=== PATIENT | female | born 2000 | race African-American/Black ===

== ENCOUNTER 2021-12-01 18:21 | Emergency (ER) | payer OTHER ==
[2021-12-01 20:40] LABS: BASOPHILS % (AUTO) 0.6 %; EOSINOPHILS # (AUTO) 0.1 10^3/uL (0.0-0.7); EOSINOPHILS % (AUTO) 1.9 %; HCT - HEMATOCRIT 32.6 % (37.0-47.0); HGB - HEMOGLOBIN 10.7 g/dL (12.0-16.0); LYMPHOCYTES # (AUTO) 2.3 10^3/uL (1.5-3.5); MEAN CORPUSCULAR HEMOGLOBIN 23.3 pg (27.0-31.0); MEAN CORPUSCULAR HGB CONC 32.8 g/dL (32.0-36.0); MONOCYTES # (AUTO) 0.6 10^3/uL (0.0-1.0); MONOCYTES % (AUTO) 7.9 %; NEUTROPHILS % (AUTO) 56.3 %; PLT - PLATELET COUNT 346 10^3/uL (130-450); RED BLOOD COUNT 4.59 10^6/uL (4.20-5.40); RED CELL DISTRIBUTION WIDTH 18.4 % (12.0-15.0)
[2021-12-01 20:59] LABS: ACETAMINOPHEN 14 ug/mL (10-30); ALBUMIN 4.5 g/dL (3.2-5.5); ALBUMIN/GLOBULIN RATIO 1.4 (1.0-2.2); ALKALINE PHOSPHATASE 36 IU/L (42-121); ALT ALANINE AMINOTRANSFERASE 16 IU/L (10-60); AST ASPARTATE AMINOTRANSFERASE 22 IU/L (10-42); BILIRUBIN,TOTAL 0.7 mg/dL (0.2-1.0); BUN - BLOOD UREA NITROGEN 8 mg/dL (6-20); CALCIUM 9.2 mg/dL (8.5-10.3); CARBON DIOXIDE - CO2 23 mmol/L (21-32); CHLORIDE 102 mmol/L (101-111); CREATININE 0.6 mg/dL (0.4-1.0); ETOH - ETHANOL < 5.0 mg/dL; GFR - MDRD 153 (>89); GLUCOSE 98 mg/dL (70-100); LIPASE 40 U/L (22-51); POTASSIUM 3.8 mmol/L (3.5-5.0); SALICYLATE < 6.0 mg/dL; SODIUM 135 mmol/L (135-145); TOTAL PROTEIN 7.7 g/dL (6.7-8.2)
[2021-12-01 20:59] LABS: MUDS CUTOFF CONCENTRATIONS CUTOFF CONC BELOW:
[2021-12-01 21:12] LABS: BILIRUBIN,URINE NEGATIVE (NEGATIVE); GLUCOSE, URINE (UA) NEGATIVE (NEGATIVE); KETONES,URINE (UA) NEGATIVE (NEGATIVE); LEUKOCYTE ESTERASE, URINE NEGATIVE (NEGATIVE); NITRITE,URINE POSITIVE (NEGATIVE); OCCULT BLOOD,URINE MODERATE (NEGATIVE); PH,URINE 7.5 PH (5.0-7.5); PROTEIN,URINE NEGATIVE (NEGATIVE); UROBILINOGEN,URINE 0.2 (NORMAL) E.U./dL (NORMAL)
[2021-12-01 21:18] LABS: CLARITY,URINE SL. CLOUDY (CLEAR); HCG UR QUAL NEGATIVE
[2021-12-01 21:24] LABS: AMPHETAMINE SCREEN,URINE NEGATIVE (NEGATIVE); BACTERIA,URINE Many /HPF (None Seen); BARBITURATE SCREEN,UR NEGATIVE (NEGATIVE); BENZODIAZEPINES SCREEN, URINE NEGATIVE (NEGATIVE); COCAINE SCREEN URINE NEGATIVE (NEGATIVE); METHADONE SCREEN, URINE NEGATIVE (NEGATIVE); METHAMPHETAMINES SCREEN, URINE NEGATIVE (NEGATIVE); OPIATE SCREEN, URINE NEGATIVE (NEGATIVE); OXYCODONE SCREEN, URINE NEGATIVE (NEGATIVE); PROPOXYPHENE SCREEN, URINE NEGATIVE (NEGATIVE); RBC,URINE 0-5 /HPF (0-5); SQUAMOUS EPITHELIAL CELL,UR RARE Squamous (<= Few); THC CANNABINOID SCREEN, URINE NEGATIVE (NEGATIVE); TRICYCLIC ANTIDEPRESSANT,URINE NEGATIVE (NEGATIVE); WBC,URINE 0-3 /HPF (0-5)
--- NOTE | 2021-12-01 21:41 | ED Physician Documentation ---
History of Present Illness - Stated complaint Stated Complaint: MHE - Chief complaint Chief Complaint: MHE - History obtained from History obtained from: Patient - Additonal information Additional information: 21yF with pmh iron deficiency anemia p/w depressed symptoms over the past several months, worsening this month. endorses home stressors (mother and brother with mental health issues, drug use in parents, arguments between parents) as well as stress within her life. feels safe in her living situation. no prior history of mental health diagnoses, but she states she has had depressive symptoms since teenage years. denies any medications. patient has tried to follow up with her LPO, chief, behavioral health services, fleet and family services, and 1 source and has been told that she can't get an appointment. This has been ongoing several months. denies SI/HI/ AVH. does have passive thoughts of hopelessness and suicide without an active plan. Review of Systems Ten Systems: 10 systems reviewed and negative Constitutional: denies: Fever, Chills Cardiac: denies: Chest pain / pressure Respiratory: denies: Dyspnea GI: denies: Nausea PD PAST MEDICAL HISTORY - Allergies Allergies/Adverse Reactions: Allergies Allergy/AdvReac Type Severity Reaction Status Date / Time No Known Drug Allergies Allergy Verified 12/01/21 20:27 PD ED PE NORMAL - Vitals Vital signs reviewed: Yes - General General: Alert and oriented X 3, No acute distress, Well developed/nourished - HEENT HEENT: Atraumatic, PERRL, EOMI - Neck Neck: Supple, no meningeal sign - Cardiac Cardiac: RRR - Respiratory Respiratory: No respiratory distress, Clear bilaterally - Abdomen Abdomen: Non tender, Non distended - Back Back: No CVA TTP - Derm Derm: Normal color, Warm and dry - Extremities Extremities: No deformity - Neuro Neuro: Alert and oriented X 3 - Psych Psych: Normal mood, Normal affect Results - Vitals Vitals: Vital Signs - 24 hr 12/01/21 20:23 Temperature 36.4 C L Heart Rate 73 Respiratory 14 Rate Blood Pressure 140/93 H O2 Saturation 100 Oxygen O2 Source Room air - Labs Labs: Laboratory Tests 12/01/21 12/01/21 12/01/21 20:32 20:32 20:32 WBC 7.0 RBC 4.59 Hgb 10.7 L Hct 32.6 L MCV 71.0 L MCH 23.3 L MCHC 32.8 RDW 18.4 H Plt Count 346 MPV 10.0 Neut # (Auto) 4.0 Lymph # (Auto) 2.3 [place] # (Auto) 0.6 Eos # (Auto) 0.1 Baso # (Auto) 0.0 Absolute Nucleated RBC 0.00 Nucleated RBC % 0.0 Sodium 135 Potassium 3.8 Chloride 102 Carbon Dioxide 23 Anion Gap 10.0 BUN 8 Creatinine 0.6 Estimated GFR (MDRD) 153 Glucose 98 Calcium 9.2 Total Bilirubin 0.7 AST 22 ALT 16 Alkaline Phosphatase 36 L Total Protein 7.7 Albumin 4.5 Globulin 3.2 Albumin/Globulin Ratio 1.4 Lipase 40 TSH 1.62 Urine Color Urine Clarity Urine pH Ur Specific [place] Urine Protein Urine Glucose (UA) Urine Ketones Urine Occult Blood Urine Nitrite Urine Bilirubin Urine Urobilinogen Ur Leukocyte Esterase Urine RBC Urine WBC Ur Squamous Epith Cells Urine Bacteria Ur Microscopic Review Urine Culture Comments Urine HCG, Qual Salicylates < 6.0 Urine Opiates Screen Ur Oxycodone Screen Urine Methadone Screen Ur Propoxyphene Screen Acetaminophen 14 Ur Barbiturates Screen Ur Tricyclics Screen Ur Phencyclidine Scrn Ur Amphetamine Screen U Methamphetamines Scrn U Benzodiazepines Scrn Urine Cocaine Screen U Cannabinoids Screen Ethyl Alcohol < 5.0 12/01/21 20:45 WBC RBC Hgb Hct MCV MCH MCHC RDW Plt Count MPV Neut # (Auto) Lymph # (Auto) [place] # (Auto) Eos # (Auto) Baso # (Auto) Absolute Nucleated RBC Nucleated RBC % Sodium Potassium Chloride Carbon Dioxide Anion Gap BUN Creatinine Estimated GFR (MDRD) Glucose Calcium Total Bilirubin AST ALT Alkaline Phosphatase Total Protein Albumin Globulin Albumin/Globulin Ratio Lipase TSH Urine Color LT. YELLOW Urine Clarity SL. CLOUDY Urine pH 7.5 Ur Specific [place] 1.015 Urine Protein NEGATIVE Urine Glucose (UA) NEGATIVE Urine Ketones NEGATIVE Urine Occult Blood MODERATE H Urine Nitrite POSITIVE H Urine Bilirubin NEGATIVE Urine Urobilinogen 0.2 (NORMAL) Ur Leukocyte Esterase NEGATIVE Urine RBC 0-5 Urine WBC 0-3 Ur Squamous Epith Cells RARE Squamous Urine Bacteria Many H Ur Microscopic Review INDICATED Urine Culture Comments INDICATED Urine HCG, Qual NEGATIVE Salicylates Urine Opiates Screen NEGATIVE Ur Oxycodone Screen NEGATIVE Urine Methadone Screen NEGATIVE Ur Propoxyphene Screen NEGATIVE Acetaminophen Ur Barbiturates Screen NEGATIVE Ur Tricyclics Screen NEGATIVE Ur Phencyclidine Scrn NEGATIVE Ur Amphetamine Screen NEGATIVE U Methamphetamines Scrn NEGATIVE U Benzodiazepines Scrn NEGATIVE Urine Cocaine Screen NEGATIVE U Cannabinoids Screen NEGATIVE Ethyl Alcohol PD MEDICAL DECISION MAKING - ED course ED course: 21yF with pmh iron deficiency anemia p/w depressed symptoms over the past several months, worsening this month. patient has tried to follow up with her LPO, chief, behavioral health services, fleet and family services, and 1 source and has been told that she can't get an appointment. This has been ongoing several months. denies SI/HI/ AVH. does have passive thoughts of hopelessness but contracts for safety here in the ED and denies active SI. d/w patient's 2nd classman superior officer who brought her in, as well as with the patient. She will require psychiatry follow up tomorrow and coordination of mental health counseling. discussed patient's lab results with her. u/a shows asymptomatic bacteriuria. patient denies urinary sx, abd pain back pain or fever. [place] restart her iron pills. return precautions given. Departure - Departure Disposition: 01 Home, Self Care Clinical Impression: Anemia, Depression Condition: Stable Instructions: ED Depression Comments: Clover Malik was seen in the emergency department for mental health evaluation on 12/01/21. It is my medical opinion that she is depressed and needs to see a psychiatrist with the [facility] tomorrow for initiation of a mental health plan. Please have her return to the ED between the hours of 9am and 5pm on week if the [facility] is unable to set her up with a mental health counselor and psychiatrist and we will coordinate with our social workers to have it done. Return to the ED at any time, day or night, for new or worsening symptoms or o ther concerns. Dr. Sara Corbett M.D. Emergency Medicine, [facility]
[2021-12-01 21:46] VITALS: BP 120/81
== END 2021-12-01 21:46 | disposition home or self-care (01) ==
LOC: ED 18:21
DX: F32.A Depression, unspecified (principal); D64.9 Anemia, unspecified
CPT/HCPCS: 36415; 80053; 80306; 80307; 80320; 80329; 81001; 81003; 81025; 83690; 84443; 85025; 87086; 99282; 99283

== ENCOUNTER 2021-12-18 14:44 | Outpatient (CLI) | payer OTHER | END 2021-12-18 14:45 | disposition critical access hospital (66) | LOC: EMS 14:44 | DX: T39.312A Poisoning by propionic acid derivatives, intentional self-harm, initial encounter (principal); T45.0X2A Poisoning by antiallergic and antiemetic drugs, intentional self-harm, initial encounter; R56.9 Unspecified convulsions | CPT/HCPCS: A0425; A0427 ==

== ENCOUNTER 2021-12-18 14:57 | Inpatient (IN) | payer OTHER ==
[2021-12-18] MEDS ORDERED: SODIUM CHLORIDE 0.9% 1,000 ML IV STA ×2 (15:04)
--- NOTE | 2021-12-18 15:08 | ED Physician Documentation ---
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 Apparently took about 20 to 30 tablets of each. 200 mg ibuprofen, 25 mg diphenhydramine. She reportedly had an episode of SVT with EMS. She is currently in sinus tachycardia. She had a seizure about 3 minutes prior to arrival. Was given 5 mg of Versed IV. EMS states that they do not know the circumstances surrounding the overdose. She did state that she was trying to harm herself. They do not have any further history on this patient. Review of Systems Unable to obtain: [facility] PD PAST MEDICAL HISTORY - Past Medical History Past Medical History: Yes Psych: Depression Other Past Medical History: anemia - Allergies Allergies/Adverse Reactions: Allergies Allergy/AdvReac Type Severity Reaction Status Date / Time No Known Drug Allergies Allergy Verified 12/18/21 15:44 - Living Situation Living Arrangement: reports: At home - Social History Does the pt have substance abuse?: No - Family History Family history: reports: Non contributory PD ED PE NORMAL - Vitals Vital signs reviewed: Yes - General General: Other (drowsy, not conversant) - HEENT HEENT: PERRL, Moist mucous membranes - Neck Neck: Supple, no meningeal sign - Cardiac Cardiac: Other (tachycardic) - Respiratory Respiratory: No respiratory distress, Clear bilaterally - Abdomen Abdomen: Soft, Non tender, Non distended - Derm Derm: Warm and dry - Extremities Extremities: No edema - Neuro Eye Opening: To Voice Motor: Withdraws to Pain Verbal: Inappropriate GCS Score: 10 Results - Vitals Vitals: Vital Signs - 24 hr 12/18/21 12/18/21 15:44 16:13 Temperature 37 C 36.9 C Heart Rate 155 H 156 H Respiratory 25 H 28 H Rate Blood Pressure 133/66 H 132/66 H O2 Saturation 100 100 Oxygen O2 Source Nasal cannula - EKG (time done) 1506 Rate: Rate (enter#) (154) Rhythm: Sinus tachycardia [place]: Normal Intervals: Normal [place] QRS: Normal Ischemia: Non specific changes - Labs Labs: Laboratory Tests 12/18/21 12/18/21 12/18/21 15:12 15:12 15:12 WBC RBC Hgb Hct MCV MCH MCHC RDW Plt Count MPV Neut # (Auto) Lymph # (Auto) [place] # (Auto) Eos # (Auto) Baso # (Auto) Absolute Nucleated RBC Nucleated RBC % VBG pH VBG pCO2 VBG pO2 VBG HCO3 VBG Total CO2 VBG O2 Saturation VBG Base Excess Sodium Potassium Chloride Carbon Dioxide Anion Gap BUN Creatinine Estimated GFR (MDRD) Glucose Calcium Total Bilirubin AST Alkaline Phosphatase Total Protein Albumin Globulin Albumin/Globulin Ratio Lipase TSH Urine Color YELLOW Urine Clarity HAZY Urine pH 6.5 Ur Specific [place] 1.020 Urine Protein NEGATIVE Urine Glucose (UA) NEGATIVE Urine Ketones NEGATIVE Urine Occult Blood NEGATIVE Urine Nitrite POSITIVE H Urine Bilirubin NEGATIVE Urine Urobilinogen 0.2 (NORMAL) Ur Leukocyte Esterase NEGATIVE Urine RBC 0-5 Urine WBC 6-10 H Ur Squamous Epith Cells NONE SEEN Urine Bacteria Many H Ur Microscopic Review INDICATED Urine Culture Comments INDICATED Urine HCG, Qual NEGATIVE Nasal Adenovirus (PCR) NOT DETECTED Nasal B. parapertussis DNA (PCR) NOT DETECTED Nasal Coronavir 229E PCR NOT DETECTED Nasal Coronavir HKU1 PCR NOT DETECTED Nasal Coronavir NL63 PCR NOT DETECTED Nasal Coronavir OC43 PCR NOT DETECTED Nasal Enterovir/Rhinovir PCR NOT DETECTED Nasal Influenza B PCR NOT DETECTED Nasal Influenza A PCR NOT DETECTED Nasal Parainfluen 1 PCR NOT DETECTED Nasal Parainfluen 2 PCR NOT DETECTED Nasal Parainfluen 3 PCR NOT DETECTED Nasal Parainfluen 4 PCR NOT DETECTED Nasal RSV (PCR) NOT DETECTED Nasal B.pertussis DNA PCR NOT DETECTED Nasal C.pneumoniae (PCR) NOT DETECTED Willem Human Metapneumo PCR NOT DETECTED Nasal M.pneumoniae (PCR) NOT DETECTED Nasal SARS-CoV-2 (PCR) NOT DETECTED Salicylates Urine Opiates Screen NEGATIVE Ur Oxycodone Screen NEGATIVE Urine Methadone Screen NEGATIVE Ur Propoxyphene Screen NEGATIVE Acetaminophen Ur Barbiturates Screen NEGATIVE Ur Tricyclics Screen NEGATIVE Ur Phencyclidine Scrn NEGATIVE Ur Amphetamine Screen NEGATIVE U Methamphetamines Scrn NEGATIVE U Benzodiazepines Scrn NEGATIVE Urine Cocaine Screen NEGATIVE U Cannabinoids Screen NEGATIVE Ethyl Alcohol 12/18/21 12/18/21 12/18/21 15:14 15:14 15:14 WBC 11.5 H RBC 4.56 Hgb 10.7 L Hct 34.2 L MCV 75.0 L MCH 23.5 L MCHC 31.3 L RDW 17.5 H Plt Count 304 MPV 10.3 Neut # (Auto) 6.9 H Lymph # (Auto) 3.6 H [place] # (Auto) 0.8 Eos # (Auto) 0.1 Baso # (Auto) 0.1 Absolute Nucleated RBC 0.00 Nucleated RBC % 0.0 VBG pH VBG pCO2 VBG pO2 VBG HCO3 VBG Total CO2 VBG O2 Saturation VBG Base Excess Sodium 134 L Potassium 3.4 L Chloride 103 Carbon Dioxide 12 L* Anion Gap 19.0 H BUN 12 Creatinine 1.0 Estimated GFR (MDRD) 85 L Glucose 92 Calcium 8.6 Total Bilirubin 1.1 H AST 35 Alkaline Phosphatase 37 L Total Protein 7.5 Albumin 4.5 Globulin 3.0 Albumin/Globulin Ratio 1.5 Lipase 29 TSH 1.06 Urine Color Urine Clarity Urine pH Ur Specific [place] Urine Protein Urine Glucose (UA) Urine Ketones Urine Occult Blood Urine Nitrite Urine Bilirubin Urine Urobilinogen Ur Leukocyte Esterase Urine RBC Urine WBC Ur Squamous Epith Cells Urine Bacteria Ur Microscopic Review Urine Culture Comments Urine HCG, Qual Nasal Adenovirus (PCR) Nasal B. parapertussis DNA (PCR) Nasal Coronavir 229E PCR Nasal Coronavir HKU1 PCR Nasal Coronavir NL63 PCR Nasal Coronavir OC43 PCR Nasal Enterovir/Rhinovir PCR Nasal Influenza B PCR Nasal Influenza A PCR Nasal Parainfluen 1 PCR Nasal Parainfluen 2 PCR Nasal Parainfluen 3 PCR Nasal Parainfluen 4 PCR Nasal RSV (PCR) Nasal B.pertussis DNA PCR Nasal C.pneumoniae (PCR) Willem Human Metapneumo PCR Nasal M.pneumoniae (PCR) Nasal SARS-CoV-2 (PCR) Salicylates < 6.0 Urine Opiates Screen Ur Oxycodone Screen Urine Methadone Screen Ur Propoxyphene Screen Acetaminophen < 10 L Ur Barbiturates Screen Ur Tricyclics Screen Ur Phencyclidine Scrn Ur Amphetamine Screen U Methamphetamines Scrn U Benzodiazepines Scrn Urine Cocaine Screen U Cannabinoids Screen Ethyl Alcohol < 5.0 12/18/21 15:14 WBC RBC Hgb Hct MCV MCH MCHC RDW Plt Count MPV Neut # (Auto) Lymph # (Auto) [place] # (Auto) Eos # (Auto) Baso # (Auto) Absolute Nucleated RBC Nucleated RBC % VBG pH 7.046 L VBG pCO2 38.2 L VBG pO2 111.2 H VBG HCO3 10.2 L VBG Total CO2 11.4 L VBG O2 Saturation 95.8 H VBG Base Excess -19.4 L Sodium Potassium Chloride Carbon Dioxide Anion Gap BUN Creatinine Estimated GFR (MDRD) Glucose Calcium Total Bilirubin AST Alkaline Phosphatase Total Protein Albumin Globulin Albumin/Globulin Ratio Lipase TSH Urine Color Urine Clarity Urine pH Ur Specific [place] Urine Protein Urine Glucose (UA) Urine Ketones Urine Occult Blood Urine Nitrite Urine Bilirubin Urine Urobilinogen Ur Leukocyte Esterase Urine RBC Urine WBC Ur Squamous Epith Cells Urine Bacteria Ur Microscopic Review Urine Culture Comments Urine HCG, Qual Nasal Adenovirus (PCR) Nasal B. parapertussis DNA (PCR) Nasal Coronavir 229E PCR Nasal Coronavir HKU1 PCR Nasal Coronavir NL63 PCR Nasal Coronavir OC43 PCR Nasal Enterovir/Rhinovir PCR Nasal Influenza B PCR Nasal Influenza A PCR Nasal Parainfluen 1 PCR Nasal Parainfluen 2 PCR Nasal Parainfluen 3 PCR Nasal Parainfluen 4 PCR Nasal RSV (PCR) Nasal B.pertussis DNA PCR Nasal C.pneumoniae (PCR) Willem Human Metapneumo PCR Nasal M.pneumoniae (PCR) Nasal SARS-CoV-2 (PCR) Salicylates Urine Opiates Screen Ur Oxycodone Screen Urine Methadone Screen Ur Propoxyphene Screen Acetaminophen Ur Barbiturates Screen Ur Tricyclics Screen Ur Phencyclidine Scrn Ur Amphetamine Screen U Methamphetamines Scrn U Benzodiazepines Scrn Urine Cocaine Screen U Cannabinoids Screen Ethyl Alcohol PD MEDICAL DECISION MAKING - ED course Complexity details: reviewed results, re-evaluated patient, considered differential, d/w patient ED course: Poison control was contacted. For the Motrin, they recommend observing for nausea vomiting, abdominal pain, acidosis and renal dysfunction. For the diphenhydramine, this can cause anticholinergic effects, widening of the QRS, arrhythmias, seizures and drowsiness. If the QRS widens above 110, recommend bicarb bolus 1 to 2 mcg/kg over 2-5 mins.Secondary toMay also cause agitation and hallucinations. Use benzodiazepines as needed. Will likely need at least 24 hours of observation to slowed gastric emptying and slow GI motility from the anticholinergic effect. 1630 - Patient is opening her eyes and talking, she does appear drowsy. Patient will be admitted to the ICU for further care. Discussed the case with Dr. Carroll, 1600, hospitalist who accepts. This document was made in part using voice recognition software. While efforts are made to proofread this document, sound alike and grammatical errors may occur. Departure - Departure Disposition: 66 [facility] DC/Xfer Clinical Impression: Suicide attempt, Metabolic acidosis Diphenhydramine overdose Qualifiers: Encounter type: initial encounter Injury intent: intentional self-harm Qualified Code(s): T45.0X2A - Poisoning by antiallergic and antiemetic drugs, intentional self-harm, initial encounter Ibuprofen overdose Qualifiers: Encounter type: sequela Injury intent: intentional self-harm Qualified Code(s): T39.312S - Poisoning by propionic acid derivatives, intentional self-harm, sequela Condition: Serious
[2021-12-18 15:24] LABS: BASOPHILS # (AUTO) 0.1 10^3/uL (0.0-0.1); BASOPHILS % (AUTO) 0.7 %; EOSINOPHILS # (AUTO) 0.1 10^3/uL (0.0-0.7); EOSINOPHILS % (AUTO) 0.7 %; HCT - HEMATOCRIT 34.2 % (37.0-47.0); HGB - HEMOGLOBIN 10.7 g/dL (12.0-16.0); LYMPHOCYTES # (AUTO) 3.6 10^3/uL (1.5-3.5); LYMPHOCYTES % (AUTO) 31.3 %; MEAN CORPUSCULAR HEMOGLOBIN 23.5 pg (27.0-31.0); MEAN CORPUSCULAR HGB CONC 31.3 g/dL (32.0-36.0); MEAN PLATELET VOLUME 10.3 fL (7.9-10.8); MONOCYTES # (AUTO) 0.8 10^3/uL (0.0-1.0); MONOCYTES % (AUTO) 7.1 %; NEUTROPHILS # (AUTO) 6.9 10^3/uL (1.5-6.6); NEUTROPHILS % (AUTO) 59.9 %; PLT - PLATELET COUNT 304 10^3/uL (130-450); RED BLOOD COUNT 4.56 10^6/uL (4.20-5.40); RED CELL DISTRIBUTION WIDTH 17.5 % (12.0-15.0); WHITE BLOOD COUNT 11.5 x10^3/uL (4.8-10.8)
[2021-12-18 15:25] LABS: MUDS CUTOFF CONCENTRATIONS CUTOFF CONC BELOW:
[2021-12-18 15:28] LABS: BILIRUBIN,URINE NEGATIVE (NEGATIVE); GLUCOSE, URINE (UA) NEGATIVE (NEGATIVE); KETONES,URINE (UA) NEGATIVE (NEGATIVE); LEUKOCYTE ESTERASE, URINE NEGATIVE (NEGATIVE); NITRITE,URINE POSITIVE (NEGATIVE); OCCULT BLOOD,URINE NEGATIVE (NEGATIVE); PH,URINE 6.5 PH (5.0-7.5); PROTEIN,URINE NEGATIVE (NEGATIVE); UROBILINOGEN,URINE 0.2 (NORMAL) E.U./dL (NORMAL)
[2021-12-18 15:30] LABS: CLARITY,URINE HAZY (CLEAR); HCG UR QUAL NEGATIVE
[2021-12-18] MEDS ORDERED: PANTOPRAZOLE 40 MG VIAL IVP STA (15:38)
[2021-12-18 15:39] LABS: BACTERIA,URINE Many /HPF (None Seen); RBC,URINE 0-5 /HPF (0-5); SQUAMOUS EPITHELIAL CELL,UR NONE SEEN (<= Few)
[2021-12-18 15:41] LABS: AMPHETAMINE SCREEN,URINE NEGATIVE (NEGATIVE); BARBITURATE SCREEN,UR NEGATIVE (NEGATIVE); BENZODIAZEPINES SCREEN, URINE NEGATIVE (NEGATIVE); COCAINE SCREEN URINE NEGATIVE (NEGATIVE); METHADONE SCREEN, URINE NEGATIVE (NEGATIVE); METHAMPHETAMINES SCREEN, URINE NEGATIVE (NEGATIVE); OPIATE SCREEN, URINE NEGATIVE (NEGATIVE); OXYCODONE SCREEN, URINE NEGATIVE (NEGATIVE); PROPOXYPHENE SCREEN, URINE NEGATIVE (NEGATIVE); THC CANNABINOID SCREEN, URINE NEGATIVE (NEGATIVE); TRICYCLIC ANTIDEPRESSANT,URINE NEGATIVE (NEGATIVE)
[2021-12-18 15:45] LABS: ACETAMINOPHEN < 10 ug/mL (10-30); ALBUMIN 4.5 g/dL (3.2-5.5); ALBUMIN/GLOBULIN RATIO 1.5 (1.0-2.2); ALKALINE PHOSPHATASE 37 IU/L (42-121); AST ASPARTATE AMINOTRANSFERASE 35 IU/L (10-42); BILIRUBIN,TOTAL 1.1 mg/dL (0.2-1.0); BUN - BLOOD UREA NITROGEN 12 mg/dL (6-20); CALCIUM 8.6 mg/dL (8.5-10.3); CHLORIDE 103 mmol/L (101-111); ETOH - ETHANOL < 5.0 mg/dL; GFR - MDRD 85 (>89); GLUCOSE 92 mg/dL (70-100); LIPASE 29 U/L (22-51); POTASSIUM 3.4 mmol/L (3.5-5.0); SALICYLATE < 6.0 mg/dL; SODIUM 134 mmol/L (135-145); TOTAL PROTEIN 7.5 g/dL (6.7-8.2)
[2021-12-18 15:46] LABS: CARBON DIOXIDE - CO2 12 mmol/L (21-32)
[2021-12-18] MEDS ORDERED: ONDANSETRON 4 MG/2 ML VIAL IVP PRN (16:06)
[2021-12-18] MEDS ORDERED: SODIUM CHLORIDE FLUSH 0.9% 10 ML SYRINGE IVP PRN (16:06)
--- NOTE | 2021-12-18 16:14 | HISTORY & PHYSICAL EXAMINATION ---
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 She apparently did start seeing a counselor, but that "did not help". Today EMS was called after she took an overdose of ibuprofen and diphenhydramine. She took approx. 20-30 tablets of 200 mg ibuprofen tabs and 25 mg diphenhydramine tabs. She reportedly had an episode of SVT with EMS and had a seizure about 3 minutes prior to arrival. EMS gave her 5 mg of Versed IV. EMS states that they do not know the circumstances surrounding the overdose, but she did state that she was trying to harm herself. She says that "a lot of little things" set her off to do this, she has never overdosed previously. She is being admitted to the ICU because of the seizure and acidosis. She appears very scared, her eyes are wide open, she is startled easily, her hands are tremulous. She does not answer any details about the ingestion. History - Past Medical History Cardiovascular: reports: None Respiratory: reports: None Neuro: reports: None Endocrine/Autoimmune: reports: None GI: reports: None [employer] HELPER: reports: None : reports: None HEENT: reports: None Psych: reports: Depression Musculoskeletal: reports: None Derm: reports: None Other Past Medical History: anemia - Family & Social History Living arrangement: At home Living Situation: Alone Social History Notes: FH is unknown, patient is poor historian, her answers are vague. She does not smoke cigarettes and would not answer regarding how much alcohol she drinks or about drug use. Meds/Allgy - Allergies Allergies/Adverse Reactions: Allergies Allergy/AdvReac Type Severity Reaction Status Date / Time No Known Drug Allergies Allergy Verified 12/18/21 15:44 Review of Systems - All Other Systems All Other Systems: reports: Other (Cannot perform ROS as she is poor historian due to vague answers.) Exam - Vital Signs Reviewed Vital Signs: Yes Vital Signs: Vital Signs x48h Temp Pulse Resp BP Pulse Ox 01/30/22 15:44 37 C 155 H 25 H 133/66 H 100 - Physical Exam General Appearance: positive: Other (Appears scared, eyes are wide open, she is staring straight ahead.) Eyes Bilateral: positive: Normal inspection, EOMI ENT: positive: Dry mucous membranes Neck: positive: Nml inspection, No JVD Respiratory: positive: No respiratory distress, Breath sounds nml Cardiovascular: positive: Regular rate & rhythm, No murmur, Tachycardia Abdomen: positive: Non-tender, No distention Skin: positive: Warm, Dry Extremities: positive: Non-tender, No pedal edema Neurologic/Psychiatric: positive: Other (Alert and hypersensative to stimuli, arms and hands are tremulous, she is staring straight ahead (?hallucinating), and her answers are slow and brief and vague.) Conclusion/Plan - Problem List (1) Suicide attempt Conclusion/Plan: She will be admitted to manage the medical complications of Benadryl OD and NSAID OD. 1:1 monitoring and suicide precautions. Mental Health eval planned when she is medically cleared. Her commanding officer Jordan Huang was contacted ([phone] ) and updates were given to him, after the pt allowed us to talk to him. (2) Ibuprofen overdose Conclusion/Plan: Poison control was contacted by ED staff and NSAID overdose may cause acidosis, bleeding, and they recommend observing for nausea vomiting, abdominal pain, acidosis and renal dysfunction. Her serum electrolytes already show a low bicarb of 12, therefore we will obtain a serum pH by VBG and start bicarbonate drip if needed. Follow her electrolytes closely. Give prophylactic IV Protonix to potentially prevent GI bleeding. Watch for ANDRAE from NSAIDs. Follow BUN/creat daily Qualifiers: Encounter type: sequela Injury intent: intentional self-harm Qualified Code(s): T39.312S - Poisoning by propionic acid derivatives, intentional self- harm, sequela (3) Diphenhydramine overdose Conclusion/Plan: Poison control was called and a Benadryl over dose can cause potential QRS prolongation, anticholinergic effects, arrhythmias, seizures and drowsiness. If the QRS widens above 110, recommended bicarb bolus 1 to 2 mcg/kg over 2-5 mins. She may also get agitation and hallucinations. Would use benzodiazepines as needed, as per Poison control. She already has tachycardia and elevated temperature, which are consistent with anticholinergic toxicity. She already has altered mental status and needs monitoring for respiratory depression, will be admitted to the ICU, for seizure precautions and in case she needs intubation. Telemetry to monitor QRS duration. Continuous pulse oximetry to monitor for desturations and resp depression for intubation. Qualifiers: Encounter type: initial encounter Injury intent: intentional self-harm Qualified Code(s): T45.0X2A - Poisoning by antiallergic and antiemetic drugs, intentional self-harm, initial encounter (4) Metabolic acidosis Conclusion/Plan: Will start iv bicarb drip. Follow VBG q4 hr (5) Tachycardia Conclusion/Plan: She is very tachycardic at rest with a heart rate of 160. It is sinus tachycardia. This is likely due to anticholinergic toxicity (from the Benadryl overdose). We will give a saline bolus, in case part of this is due to volume depletion. We will continue with telemetry monitoring. (6) UTI (urinary tract infection) Conclusion/Plan: The patient has a fever of 38 degrees C. Her white blood count is elevated at 11.5. She is unreliable to describe if she has dysuria but possibly her mental status alteration is partly from an infection, therefore she will be started on empiric IV antibiotics using Ceftriaxone. Urine culture has been sent from her UA. We will order blood cultures, given the fever. (7) Hypokalemia Conclusion/Plan: Despite being acidotic, she does not have hyperkalemia. This suggests very low serum potassium stores. We will replace with K riders. Follow electrolytes closely. (8) Depression Conclusion/Plan: The details of how she was managed as an outpatient are unknown. Social Work consult will be requested for help with learning the circumstances of the overdose, and for a mental health eval. when she is medically stabilized. (9) Microcytic anemia Conclusion/Plan: She carries a history of iron deficiency anemia, but not sickle cell disease, although this should be considered given she is [place]. Will resume her iron replacement or any other meds when they are reconciled by pharmacy. We will follow her CBC daily, and transfuse if hemoglobin goes under 7 - Lab Results Fish Bones: 12/19/21 04:55 12/19/21 04:55
[2021-12-18 16:18] LABS: B. PARAPERTUSSIS- RESP PCR PAN NOT DETECTED; B. PERTUSSIS- RESP PCR PANEL NOT DETECTED; C. PNEUMONIAE- RESP PCR PANEL NOT DETECTED; CORONAVIRUS 229E-RESP PCR NOT DETECTED; CORONAVIRUS HKU1-RESP PCR NOT DETECTED; CORONAVIRUS NL63-RESP PCR NOT DETECTED; CORONAVIRUS OC43-RESP PCR NOT DETECTED; HUMAN METAPNEUMOVIRUS NOT DETECTED; INFLUENZA A- RESP PCR PANEL NOT DETECTED; INFLUENZA B - RESP PCR PANEL NOT DETECTED; M. PNEUMONIAE- RESP PCR PANEL NOT DETECTED; PARAINFLUENZA VIRUS 1 NOT DETECTED; PARAINFLUENZA VIRUS 2 NOT DETECTED; PARAINFLUENZA VIRUS 3 NOT DETECTED; PARAINFLUENZA VIRUS 4 NOT DETECTED; RHINOVIRUS/ENTEROVIRUS NOT DETECTED; RSV- RESP PCR PANEL NOT DETECTED; SARS-CoV-2 -RESP PCR PANEL NOT DETECTED
[2021-12-18 16:20] LABS: VBG PCO2 38.2 mmHg (41-51); VBG PH 7.046 (7.31-7.41)
[2021-12-18 16:21] LABS: VBG BASE EXCESS -19.4 mmol/L (-2 - +2); VBG HCO3 10.2 mmol/L (23-28); VBG OXYGEN SATURATION 95.8 % (60-80); VBG PO2 111.2 mmHg (25-47); VBG TOTAL CO2 11.4 mmol/L (24-29)
[2021-12-18 16:41] LABS: ALT ALANINE AMINOTRANSFERASE 18 IU/L (10-60)
[2021-12-18] MEDS ORDERED: SODIUM CHLORIDE 0.9% 1,000 ML IV ONE (19:06)
[2021-12-18] MEDS ORDERED: DEXTROSE 5% 2,000 ML IV ONE (19:30)
[2021-12-18] MEDS ORDERED: SODIUM BICARBONATE 8.4% 50 MEQ/50 ML VIAL ONE (19:33)
[2021-12-18] MEDS ORDERED: SODIUM BICARBONATE 150 MEQ in DEXTROSE 5% 1,000 ML IV SCH (20:00)
[2021-12-18] MEDS: DEXTROSE 5%-0.9% NACL 1,000 ML IV SCH (20:27)
[2021-12-18] MEDS: SODIUM CHLORIDE FLUSH 0.9% 10 ML SYRINGE IVP SCH (20:28)
[2021-12-18] MEDS: POTASSIUM CHLOR 10 MEQ/100 ML 10 MEQ/100 ML BAG IV SCH ×4 (20:32→23:38)
[2021-12-18] MEDS: cefTRIAXone 1 GM in SODIUM CHLORIDE 0.9% MINIBAG 100 ML IV SCH (20:34)
[2021-12-19] MEDS: SODIUM CHLORIDE FLUSH 0.9% 10 ML SYRINGE IVP SCH ×3 (00:45→18:26)
[2021-12-19] MEDS ORDERED: LORazepam 1 MG TABLET PO PRN (02:05)
[2021-12-19] MEDS ORDERED: [UNRECOGNIZED DRUG - OTHER] IVP ONE (02:05)
--- NOTE | 2021-12-19 02:35 | PROVIDER PROGRESS NOTE ---
Assessment/Plan - Problem List (1) Diphenhydramine overdose Qualifiers: Encounter type: initial encounter Injury intent: intentional self-harm Qualified Code(s): T45.0X2A - Poisoning by antiallergic and antiemetic drugs, intentional self-harm, initial encounter Assessment/Plan: Interval history: Patient overnight remained tachycardic with increasing heart rate up to the 140s, she was restless, tremulous was noted with dilated pupils and obvious signs of severe anticholinergic toxicity Active issues/diagnoses: Intentional overdose on Benadryl/severe anticholinergic toxicity with tachycard ia, seizure, encephalopathy/altered mental status, severe AGAP metabolic acidosis Plan: Treat with physostigmine Ativan as needed Continue bicarb drip Check creatinine kinase Aspiration precautions/seizure precaution Continue one-to-one sitter, mental health evaluation Self harm/Depression/acute UTI could possibly affect patient's mentation and poor decision-making MHE Would benefit from start of antidepressant when stable Appeared malnourished/will need inker machine support/evaluation Urinary tract infection/continue ceftriaxone, pending urine culture Hypokalemia/electrolyte abnormality/ replace as needed Microcytic anemia without clinical history or sign of bleeding Might have nutritional deficiencies will need anemia work-up Likely has iron deficiency/young menstruating female - Current Meds Current Meds: Current Medications Generic Name Dose Route Start Last Admin Trade Name Freq PRN Reason Stop Dose Admin Dextrose/Sodium Chloride 1,000 mls @ 83.33 mls/hr 12/18/21 17:00 12/18/21 20:27 D5ns IV 83.33 mls/hr .Q12H1M ED Administration Sodium Bicarbonate 150 meq/ 1,150 mls @ 100 mls/hr 12/18/21 20:00 12/18/21 20:05 Dextrose IV 100 mls/hr .[id number] ED Administration Ceftriaxone Sodium 1 gm/ 100 mls @ 200 mls/hr 12/18/21 20:00 12/18/21 21:35 Sodium Chloride IV Infused Q24H ED Infusion Lorazepam 1 mg 12/19/21 02:05 12/19/21 02:16 Lorazepam 1 Mg Tablet PO 1 mg Q6H PRN Administration Anxiety Sodium Chloride 10 ml 12/18/21 17:00 12/19/21 00:45 Sodium Chloride Flush 0.9% 10 Ml Syringe IVP Not Given 0100,0900,1700 ED - Lab Result Fish Bone Diagrams: 12/18/21 15:14 12/19/21 02:15 - EKG Results EKG Comparison: Unchanged from prior EKG - Additional Planning Condition/Complexity: Critical My Orders: My Active Orders 12/19/21 02:05 LORazepam [Ativan] 1 mg PO Q6H PRN 12/19/21 02:15 CK- CREATINE KINASE [CHEM] Routine 12/19/21 Breakfast Regular Diet [DIET] Time Spent: 31-60 minutes Subjective - Subjective Patient Reports: Other (Appears restless and reacting to outside stimuli however denies all complaints, fidgeting and notably restless and uncomfortable) Nursing Reports: Other (Reviewed) Objective Vital Signs: Vital Signs - 24 hr 12/18/21 12/18/21 12/18/21 15:44 16:13 16:49 Temperature 37 C 36.9 C 36.9 C Heart Rate 155 H 156 H 163 H Heart Rate [ Monitoring electrodes] Respiratory 25 H 28 H 24 Rate Blood Pressure 133/66 H 132/66 H 140/68 H Blood Pressure [Right Brachial artery] O2 Saturation 100 100 100 12/18/21 12/18/21 12/18/21 17:13 18:00 19:00 Temperature 36.9 C 38 C H Heart Rate 157 H Heart Rate [ 158 H 147 H Monitoring electrodes] Respiratory 16 24 27 H Rate Blood Pressure 140/74 H Blood Pressure 140/75 H 139/85 H [Right Brachial artery] O2 Saturation 100 100 100 12/18/21 12/18/21 12/18/21 20:00 20:43 22:00 Temperature 37.1 C Heart Rate Heart Rate [ 149 H 134 H 136 H Monitoring electrodes] Respiratory 17 18 21 Rate Blood Pressure Blood Pressure 138/75 H 138/77 H 138/88 H [Right Brachial artery] O2 Saturation 100 100 100 12/18/21 12/19/21 12/19/21 23:00 00:00 01:00 Temperature Heart Rate Heart Rate [ 135 H 135 H 136 H Monitoring electrodes] Respiratory 19 21 20 Rate Blood Pressure Blood Pressure 139/85 H 135/80 H 147/76 H [Right Brachial artery] O2 Saturation 100 100 99 12/19/21 02:00 Temperature 37.4 C Heart Rate Heart Rate [ 140 H Monitoring electrodes] Respiratory 22 Rate Blood Pressure Blood Pressure 131/77 H [Right Brachial artery] O2 Saturation 99 Oxygen O2 Source Room air I&O (Last 24 Hrs): Intake and Output Totals x24h 12/17/21 12/18/21 12/19/21 23:59 23:59 23:59 Intake Total 3400 100 Output Total 1700 1575 Balance 1700 -1475 General: Alert, Other (Fidgety, appears reacting to outside impulses however denies hallucination) HEENT: Atraumatic Neck: Supple Lymphatic: no adenopathy Neuro: Alert, Disoriented, Other (Dilated pupils, fine tremors, nystagmus) Cardiovascular: Normal S1, Normal S2, Other (Regular tachycardia, hyperdynamic circulation heart rate around 140) Respiratory: No respiratory distress, Other (Increased work of breathing, respiratory rate in the high 20s) Abdomen: Soft, No tenderness - Results Results: Laboratory Results WBC 11.5 x10^3/uL (4.8-10.8) H 12/18/21 15:14 RBC 4.56 10^6/uL (4.20-5.40) 12/18/21 15:14 Hgb 10.7 g/dL (12.0-16.0) L 12/18/21 15:14 Hct 34.2 % (37.0-47.0) L 12/18/21 15:14 MCV 75.0 fL (81.0-99.0) L 12/18/21 15:14 MCH 23.5 pg (27.0-31.0) L 12/18/21 15:14 MCHC 31.3 g/dL (32.0-36.0) L 12/18/21 15:14 RDW 17.5 % (12.0-15.0) H 12/18/21 15:14 Plt Count 304 10^3/uL (130-450) 12/18/21 15:14 MPV 10.3 fL (7.9-10.8) 12/18/21 15:14 Neut # (Auto) 6.9 10^3/uL (1.5-6.6) H 12/18/21 15:14 Lymph # (Auto) 3.6 10^3/uL (1.5-3.5) H 12/18/21 15:14 [place] # (Auto) 0.8 10^3/uL (0.0-1.0) 12/18/21 15:14 Eos # (Auto) 0.1 10^3/uL (0.0-0.7) 12/18/21 15:14 Baso # (Auto) 0.1 10^3/uL (0.0-0.1) 12/18/21 15:14 Absolute Nucleated RBC 0.00 x10^3/uL 12/18/21 15:14 Nucleated RBC % 0.0 /100WBC 12/18/21 15:14 VBG pH 7.046 (7.31-7.41) L 12/18/21 15:14 VBG pCO2 38.2 mmHg (41-51) L 12/18/21 15:14 VBG pO2 111.2 mmHg (25-47) H 12/18/21 15:14 VBG HCO3 10.2 mmol/L (23-28) L 12/18/21 15:14 VBG Total CO2 11.4 mmol/L (24-29) L 12/18/21 15:14 VBG O2 Saturation 95.8 % (60-80) H 12/18/21 15:14 VBG Base Excess -19.4 mmol/L (-2 - +2) L 12/18/21 15:14 Sodium 134 mmol/L (135-145) L 12/18/21 15:14 Potassium 3.4 mmol/L (3.5-5.0) L 12/18/21 15:14 Chloride 103 mmol/L (101-111) 12/18/21 15:14 Carbon Dioxide 12 mmol/L (21-32) L* 12/18/21 15:14 Anion Gap 19.0 (6-13) H 12/18/21 15:14 BUN 12 mg/dL (6-20) 12/18/21 15:14 Creatinine 1.0 mg/dL (0.4-1.0) 12/18/21 15:14 Estimated GFR (MDRD) 85 (>89) L 12/18/21 15:14 Glucose 92 mg/dL (70-100) 12/18/21 15:14 Lactic Acid 1.8 mmol/L (0.5-2.2) 12/18/21 20:05 Calcium 8.6 mg/dL (8.5-10.3) 12/18/21 15:14 Phosphorus 4.2 mg/dL (2.5-4.6) 12/18/21 15:14 Magnesium 2.2 mg/dL (1.7-2.8) 12/18/21 15:14 Total Bilirubin 1.1 mg/dL (0.2-1.0) H 12/18/21 15:14 AST 35 IU/L (10-42) 12/18/21 15:14 ALT 18 IU/L (10-60) 12/18/21 15:14 Alkaline Phosphatase 37 IU/L (42-121) L 12/18/21 15:14 Total Protein 7.5 g/dL (6.7-8.2) 12/18/21 15:14 Albumin 4.5 g/dL (3.2-5.5) 12/18/21 15:14 Globulin 3.0 g/dL (2.1-4.2) 12/18/21 15:14 Albumin/Globulin Ratio 1.5 (1.0-2.2) 12/18/21 15:14 Lipase 29 U/L (22-51) 12/18/21 15:14 TSH 1.06 uIU/mL (0.34-5.60) 12/18/21 15:14 Urine Color YELLOW 12/18/21 15:12 Urine Clarity HAZY (CLEAR) 12/18/21 15:12 Urine pH 6.5 PH (5.0-7.5) 12/18/21 15:12 Ur Specific [place] 1.020 (1.002-1.030) 12/18/21 15:12 Urine Protein NEGATIVE mg/dL (NEGATIVE) 12/18/21 15:12 Urine Glucose (UA) NEGATIVE mg/dL (NEGATIVE) 12/18/21 15:12 Urine Ketones NEGATIVE mg/dL (NEGATIVE) 12/18/21 15:12 Urine Occult Blood NEGATIVE (NEGATIVE) 12/18/21 15:12 Urine Nitrite POSITIVE (NEGATIVE) H 12/18/21 15:12 Urine Bilirubin NEGATIVE (NEGATIVE) 12/18/21 15:12 Urine Urobilinogen 0.2 (NORMAL) E.U./dL (NORMAL) 12/18/21 15:12 Ur Leukocyte Esterase NEGATIVE (NEGATIVE) 12/18/21 15:12 Urine RBC 0-5 /HPF (0-5) 12/18/21 15:12 Urine WBC 6-10 /HPF (0-5) H 12/18/21 15:12 Ur Squamous Epith Cells NONE SEEN (<= Few) 12/18/21 15:12 Urine Bacteria Many /HPF (None Seen) H 12/18/21 15:12 Ur Microscopic Review INDICATED 12/18/21 15:12 Urine Culture Comments INDICATED 12/18/21 15:12 Urine HCG, Qual NEGATIVE 12/18/21 15:12 Nasal Adenovirus (PCR) NOT DETECTED 12/18/21 15:12 Nasal B. parapertussis DNA (PCR) NOT DETECTED 12/18/21 15:12 Nasal Coronavir 229E PCR NOT DETECTED 12/18/21 15:12 Nasal Coronavir HKU1 PCR NOT DETECTED 12/18/21 15:12 Nasal Coronavir NL63 PCR NOT DETECTED 12/18/21 15:12 Nasal Coronavir OC43 PCR NOT DETECTED 12/18/21 15:12 Nasal Enterovir/Rhinovir PCR NOT DETECTED 12/18/21 15:12 Nasal Influenza B PCR NOT DETECTED 12/18/21 15:12 Nasal Influenza A PCR NOT DETECTED 12/18/21 15:12 Nasal Parainfluen 1 PCR NOT DETECTED 12/18/21 15:12 Nasal Parainfluen 2 PCR NOT DETECTED 12/18/21 15:12 Nasal Parainfluen 3 PCR NOT DETECTED 12/18/21 15:12 Nasal Parainfluen 4 PCR NOT DETECTED 12/18/21 15:12 Nasal RSV (PCR) NOT DETECTED 12/18/21 15:12 Nasal Screen MRSA (PCR) NEGATIVE (NEGATIVE) 12/18/21 18:00 Nasal B.pertussis DNA PCR NOT DETECTED 12/18/21 15:12 Nasal C.pneumoniae (PCR) NOT DETECTED 12/18/21 15:12 Willem Human Metapneumo PCR NOT DETECTED 12/18/21 15:12 Nasal M.pneumoniae (PCR) NOT DETECTED 12/18/21 15:12 Nasal SARS-CoV-2 (PCR) NOT DETECTED 12/18/21 15:12 Salicylates < 6.0 mg/dL 12/18/21 15:14 Urine Opiates Screen NEGATIVE (NEGATIVE) 12/18/21 15:12 Ur Oxycodone Screen NEGATIVE (NEGATIVE) 12/18/21 15:12 Urine Methadone Screen NEGATIVE (NEGATIVE) 12/18/21 15:12 Ur Propoxyphene Screen NEGATIVE (NEGATIVE) 12/18/21 15:12 Acetaminophen < 10 ug/mL (10-30) L 12/18/21 15:14 Ur Barbiturates Screen NEGATIVE (NEGATIVE) 12/18/21 15:12 Ur Tricyclics Screen NEGATIVE (NEGATIVE) 12/18/21 15:12 Ur Phencyclidine Scrn NEGATIVE (NEGATIVE) 12/18/21 15:12 Ur Amphetamine Screen NEGATIVE (NEGATIVE) 12/18/21 15:12 U Methamphetamines Scrn NEGATIVE (NEGATIVE) 12/18/21 15:12 U Benzodiazepines Scrn NEGATIVE (NEGATIVE) 12/18/21 15:12 Urine Cocaine Screen NEGATIVE (NEGATIVE) 12/18/21 15:12 U Cannabinoids Screen NEGATIVE (NEGATIVE) 12/18/21 15:12 Ethyl Alcohol < 5.0 mg/dL 12/18/21 15:14
[2021-12-19] MEDS ORDERED: POTASSIUM CHLORIDE 20 MEQ TABLET PO ONE ×3 (04:26→12:48)
[2021-12-19 05:23] LABS: BASOPHILS # (AUTO) 0.1 10^3/uL (0.0-0.1); BASOPHILS % (AUTO) 0.4 %; HCT - HEMATOCRIT 31.2 % (37.0-47.0); HGB - HEMOGLOBIN 10.4 g/dL (12.0-16.0); LYMPHOCYTES # (AUTO) 1.8 10^3/uL (1.5-3.5); LYMPHOCYTES % (AUTO) 12.3 %; MEAN CORPUSCULAR HEMOGLOBIN 23.5 pg (27.0-31.0); MEAN CORPUSCULAR HGB CONC 33.3 g/dL (32.0-36.0); MEAN CORPUSCULAR VOLUME 70.6 fL (81.0-99.0); MEAN PLATELET VOLUME 10.8 fL (7.9-10.8); NEUTROPHILS # (AUTO) 11.4 10^3/uL (1.5-6.6); NEUTROPHILS % (AUTO) 79.9 %; PLT - PLATELET COUNT 325 10^3/uL (130-450); RED BLOOD COUNT 4.42 10^6/uL (4.20-5.40); RED CELL DISTRIBUTION WIDTH 16.7 % (12.0-15.0); WHITE BLOOD COUNT 14.2 x10^3/uL (4.8-10.8)
[2021-12-19 05:33] LABS: ALBUMIN 4.5 g/dL (3.2-5.5); ALBUMIN/GLOBULIN RATIO 1.5 (1.0-2.2); BILIRUBIN,TOTAL 1.2 mg/dL (0.2-1.0); CALCIUM 8.8 mg/dL (8.5-10.3); CREATININE 0.8 mg/dL (0.4-1.0); PHOSPHORUS 2.7 mg/dL (2.5-4.6); POTASSIUM 3.6 mmol/L (3.5-5.0); TOTAL PROTEIN 7.6 g/dL (6.7-8.2)
[2021-12-19] MEDS: DEXTROSE 5%-0.9% NACL 1,000 ML IV SCH ×2 (06:44→07:08)
[2021-12-19 13:59] LABS: % IRON SATURATION 5 % (20-50); IRON 18 ug/dL (28-170); TOTAL IRON BINDING CAPACITY 378 ug/dL (250-450); TRANSFERRIN 270 mg/dL (192-382)
--- NOTE | 2021-12-19 16:35 | XRAY Report ---
PROCEDURE: Pelvis 1 View INDICATIONS: Eval for retained tampon TECHNIQUE: 1 view of the pelvis acquired. COMPARISON: None. FINDINGS: Bones: No acute fractures or dislocations. No suspicious bony lesions. Soft tissues: An intrauterine device is seen projecting over the pelvis. No obvious radiolucent tamp on is seen projecting over the lower pelvis, although evaluation is limited by multiple air-filled lo ops of small and large bowel within the pelvis. Visualized bowel gas pattern is normal. No suspiciou s soft tissue calcifications. IMPRESSION: Intrauterine device is seen projecting over the right pelvis. No definite radiolucent ta mpon is seen, although evaluation is suboptimal due to multiple air-filled loops of small and large b owel within the pelvis. Reviewed by: Josh Viera MD on 12/19/2021 4:34 PM PST Approved by: Josh Viera MD on 12/19/2021 4:34 PM PST Station ID: [id number]
--- NOTE | 2021-12-19 17:00 | PROVIDER PROGRESS NOTE ---
Assessment/Plan - Problem List (1) Suicide attempt Assessment/Plan: She was admitted to manage the medical complications of Benadryl OD and NSAID OD. She can be transferred out of ICU to [facility] this afternoon. Continue 1:1 monitoring and suicide precautions. Mental Health eval planned when she is medically cleared. Thus a.m. she could not remember what she did. Her commanding officer Jordan Huang was contacted again today, he came in person (and yesterday at [phone] ) and updates were given to him, after the pt allowed us to talk to him. Also updates given to [employer], Dr Terrazas by phone ([phone]) She will likely be medically cleared for transfer to [facility] tomorrow. (2) Ibuprofen overdose Conclusion/Plan: Poison control was contacted by ED staff and NSAID overdose may cause acidosis, bleeding, and they recommend observing for nausea vomiting, abdominal pain, acidosis and renal dysfunction. Her serum electrolytes already showed a low bicarb of 12, therefore was on a bicarbonate drip overnight. Will stop iv bicarb drip today. Follow her electrolytes daily We started prophylactic IV Protonix to potentially prevent NSAID-caused GI bleeding. Watch for ANDRAE from NSAIDs. Follow BUN/creat daily Qualifiers: Encounter type: sequela Injury intent: intentional self-harm Qualified Code(s): T39.312S - Poisoning by propionic acid derivatives, intentional self- harm, sequela (3) Diphenhydramine overdose Conclusion/Plan: Poison control was called and a Benadryl overdose can cause potential QRS prolongation, anticholinergic effects, arrhythmias, seizures and drowsiness. If the QRS widens above 110, recommended bicarb bolus 1 to 2 mcg/kg over 2-5 mins. She may also get agitation and hallucinations. Would use benzodiazepines as needed, as per Poison control. She was already tachycardic and elevated temperature at admission, which are consistent with anticholinergic toxicity. She already had altered mental status and needed monitoring for respiratory depression, was admitted to the ICU, for seizure precautions and in case she needs intubation. [place] Control called us and requested EKG repeat, to monitor QRS duration. QRS has not become prolonged and no arrhythmias on telemetry. Continuous pulse oximetry was started to monitor for desturations and resp depression for intubation. Will cancel this. Qualifiers: Encounter type: initial encounter Injury intent: intentional self-harm Qualified Code(s): T45.0X2A - Poisoning by antiallergic and antiemetic drugs, intentional self-harm, initial encounter (4) Tachycardia Conclusion/Plan: She was very tachycardic at rest with a heart rate of 160, likely due to anticholinergic toxicity (from the Benadryl overdose). She got a saline bolus and antibx were started for a poss UTI. She is still slightly tachycardic at 100-108 and we will continue with telemetry monitoring but move out of ICU. (5) UTI (urinary tract infection) Conclusion/Plan: The patient has a fever of 38 degrees C. Her white blood count was elevated at 11.5 and today increased to 14. She was unreliable to describe if she has dysuria, therefore she was started on empiric IV antibiotics using Ceftriaxone. Today she was concerned about a retained tampon. A KUB was done and showed no tampon. Urine culture has been sent from her UA and is growing GPC. Awaiting identification and sens. Blood culture results are still pending. (6) Depression Conclusion/Plan: The details of how she was managed as an outpatient are unknown. Social Work consult will be requested for help with learning the circumstances of the overdose, and for a mental health eval. when she is medically stabilized, probably tomorrow. The patient's commanding officer thinks she would be transferred to [facility] for further management. (7) Microcytic anemia Conclusion/Plan: She carries a history of iron deficiency anemia, but not sickle cell disease, although this should be considered given she is [place]. Will start iron replacement, given the low Iron panel results. She was apparently on no meds per reconciled list by pharmacy. We will follow her CBC daily, and transfuse if hemoglobin goes under 7 (8) Metabolic acidosis Conclusion/Plan: Resolved. Will stop iv bicarb drip. She can be transferred out of ICU. (9) Hypokalemia Conclusion/Plan: Resolved Despite being acidotic, she does not have hyperkalemia. This suggests very low serum potassium stores. We will replace with K riders. Follow electrolytes closely. - Current Meds Current Meds: Current Medications Generic Name Dose Route Start Last Admin Trade Name Freq PRN Reason Stop Dose Admin Ceftriaxone Sodium 1 gm/ 100 mls @ 200 mls/hr 12/18/21 20:00 12/18/21 21:35 Sodium Chloride IV Infused Q24H ED Infusion Lorazepam 1 mg 12/19/21 02:05 12/19/21 02:16 Lorazepam 1 Mg Tablet PO 1 mg Q6H PRN Administration Anxiety Sodium Chloride 10 ml 12/18/21 17:00 12/19/21 07:15 Sodium Chloride Flush 0.9% 10 Ml Syringe IVP 20 ml 0100,0900,1700 ED Administration - Lab Result Fish Bone Diagrams: 12/19/21 04:55 12/19/21 10:30 - EKG Results EKG Interpreted Independently: Yes EKG Comparison: Unchanged from prior EKG EKG Findings: Sinus tachy, rate 109, borderline prolonged QTc at 488 msec. Since EKG from 12/18/21, heart rate is slower, QTc is similar. - Additional Planning My Orders: My Active Orders 12/18/21 16:06 Activity Orders [RC] Q2HR Daily Weight [RC] 0600 IO [RC] Q1HR Initiate Bowel Care Protocol [RC] QSHIFT Initiate ICU Electrolyte Prot. [RC] .protocol Initiate Line Care Protocol [RC] .protocol Initiate Personal Care Protoco [RC] .protocol Vital Signs [RC] Q1HR Ondansetron Inj [Zofran Inj] 4 mg IVP Q6HR PRN Sodium Chloride Flush 0.9% [Normal Saline Flush 0.9%] 10 ml IVP PRN PRN Code Status [OTHERS] Routine Condition of Patient [OTHERS] Routine DVT Prophylaxis [OTHERS] Routine 12/18/21 16:08 Oxygen Therapy [RC] .PRN SCDs [RC] QSHIFT Telemetry- [RC] Q4HR 12/18/21 16:09 Initiate Line Care Protocol [RC] QSHIFT 12/18/21 16:32 Neuro Check [RC] Q2HR 12/18/21 17:00 Sodium Chloride Flush 0.9% [Normal Saline Flush 0.9%] 10 ml IVP 0100,0900,1700 12/18/21 20:00 cefTRIAXone [Rocephin] 1 gm Sodium Chloride 0.9% Minibag [Normal Saline 0.9% Minibag] 100 ml IV Q24H 12/18/21 20:05 CULTURE, BLOOD #1 [RM] Stat 12/18/21 20:55 CULTURE, BLOOD #2 [RM] Stat 12/19/21 Evaluate and Treat PT [PT] Routine 12/19/21 Dinner Vegetarian Diet [DIET] 12/19/21 16:58 Daley Discontinuation [RC] ONCE 12/20/21 05:00 IRON TIBC PANEL [CHEM] DAILYLAB Subjective - Subjective Patient Reports: Feeling Better, Other (She thinks she has a retained tampon inside her.) Nursing Reports: Other (No more tremor, or ataxic movements) Objective Vital Signs: Vital Signs - 24 hr 12/18/21 12/18/21 12/18/21 17:13 18:00 19:00 Temperature 36.9 C 38 C H Heart Rate 157 H Heart Rate [ 158 H 147 H Monitoring electrodes] Respiratory 16 24 27 H Rate Blood Pressure 140/74 H Blood Pressure 140/75 H 139/85 H [Right Brachial artery] O2 Saturation 100 100 100 12/18/21 12/18/21 12/18/21 20:00 20:43 22:00 Temperature 37.1 C Heart Rate Heart Rate [ 149 H 134 H 136 H Monitoring electrodes] Respiratory 17 18 21 Rate Blood Pressure Blood Pressure 138/75 H 138/77 H 138/88 H [Right Brachial artery] O2 Saturation 100 100 100 12/18/21 12/19/21 12/19/21 23:00 00:00 01:00 Temperature Heart Rate Heart Rate [ 135 H 135 H 136 H Monitoring electrodes] Respiratory 19 21 20 Rate Blood Pressure Blood Pressure 139/85 H 135/80 H 147/76 H [Right Brachial artery] O2 Saturation 100 100 99 12/19/21 12/19/21 12/19/21 02:00 03:00 04:00 Temperature 37.4 C Heart Rate Heart Rate [ 140 H 139 H 137 H Monitoring electrodes] Respiratory 22 21 23 Rate Blood Pressure Blood Pressure 131/77 H 136/87 H 132/82 H [Right Brachial artery] O2 Saturation 99 98 100 12/19/21 12/19/21 12/19/21 05:00 06:00 07:00 Temperature Heart Rate Heart Rate [ 144 H 122 H 133 H Monitoring electrodes] Respiratory 25 H 24 23 Rate Blood Pressure Blood Pressure 139/84 H 132/80 H 128/74 [Right Brachial artery] O2 Saturation 98 98 100 12/19/21 12/19/21 12/19/21 08:00 09:00 10:00 Temperature 36.9 C Heart Rate Heart Rate [ 103 H 112 H 112 H Monitoring electrodes] Respiratory 22 20 22 Rate Blood Pressure Blood Pressure 133/78 H 131/83 H 132/71 H [Right Brachial artery] O2 Saturation 99 98 97 12/19/21 12/19/21 12/19/21 11:00 12:00 13:00 Temperature 37.1 C Heart Rate Heart Rate [ 96 108 H 98 Monitoring electrodes] Respiratory 18 22 20 Rate Blood Pressure Blood Pressure 107/56 L 99/64 127/99 H [Right Brachial artery] O2 Saturation 96 95 96 12/19/21 12/19/21 12/19/21 14:00 15:00 16:00 Temperature 36.7 C Heart Rate Heart Rate [ 99 86 75 Monitoring electrodes] Respiratory 18 20 15 Rate Blood Pressure Blood Pressure 124/81 H 113/75 127/75 [Right Brachial artery] O2 Saturation 98 Oxygen O2 Source Room air I&O (Last 24 Hrs): Intake and Output Totals x24h 12/17/21 12/18/21 12/19/21 23:59 23:59 23:59 Intake Total 3400 1236.91 Output Total 1700 3865 Balance 1700 -2628.09 General: Alert, Oriented x3 (Still has poor eye contact) HEENT: Atraumatic, EOMI, Mucous membr. moist/pink Neck: Supple, No JVD Neuro: Alert, Non Focal Cardiovascular: Regular rate, No murmurs Respiratory: No respiratory distress, Breath sounds nml Abdomen: Normal bowel sounds, Soft Extremities: No edema, No tenderness/swelling - Results Results: Laboratory Results WBC 14.2 x10^3/uL (4.8-10.8) H 12/19/21 04:55 RBC 4.42 10^6/uL (4.20-5.40) 12/19/21 04:55 Hgb 10.4 g/dL (12.0-16.0) L 12/19/21 04:55 Hct 31.2 % (37.0-47.0) L 12/19/21 04:55 MCV 70.6 fL (81.0-99.0) L 12/19/21 04:55 MCH 23.5 pg (27.0-31.0) L 12/19/21 04:55 MCHC 33.3 g/dL (32.0-36.0) 12/19/21 04:55 RDW 16.7 % (12.0-15.0) H 12/19/21 04:55 Plt Count 325 10^3/uL (130-450) 12/19/21 04:55 MPV 10.8 fL (7.9-10.8) 12/19/21 04:55 Neut # (Auto) 11.4 10^3/uL (1.5-6.6) H 12/19/21 04:55 Lymph # (Auto) 1.8 10^3/uL (1.5-3.5) 12/19/21 04:55 [place] # (Auto) 1.0 10^3/uL (0.0-1.0) 12/19/21 04:55 Eos # (Auto) 0.0 10^3/uL (0.0-0.7) 12/19/21 04:55 Baso # (Auto) 0.1 10^3/uL (0.0-0.1) 12/19/21 04:55 Absolute Nucleated RBC 0.00 x10^3/uL 12/19/21 04:55 Nucleated RBC % 0.0 /100WBC 12/19/21 04:55 VBG pH 7.046 (7.31-7.41) L 12/18/21 15:14 VBG pCO2 38.2 mmHg (41-51) L 12/18/21 15:14 VBG pO2 111.2 mmHg (25-47) H 12/18/21 15:14 VBG HCO3 10.2 mmol/L (23-28) L 12/18/21 15:14 VBG Total CO2 11.4 mmol/L (24-29) L 12/18/21 15:14 VBG O2 Saturation 95.8 % (60-80) H 12/18/21 15:14 VBG Base Excess -19.4 mmol/L (-2 - +2) L 12/18/21 15:14 Sodium 136 mmol/L (135-145) 12/19/21 04:55 Potassium 3.8 mmol/L (3.5-5.0) 12/19/21 10:30 Chloride 104 mmol/L (101-111) 12/19/21 04:55 Carbon Dioxide 21 mmol/L (21-32) 12/19/21 04:55 Anion Gap 11.0 (6-13) 12/19/21 04:55 BUN 5 mg/dL (6-20) L 12/19/21 04:55 Creatinine 0.8 mg/dL (0.4-1.0) 12/19/21 04:55 Estimated GFR (MDRD) 110 (>89) 12/19/21 04:55 Glucose 107 mg/dL (70-100) H 12/19/21 04:55 Lactic Acid 1.8 mmol/L (0.5-2.2) 12/18/21 20:05 Calcium 8.8 mg/dL (8.5-10.3) 12/19/21 04:55 Phosphorus 2.7 mg/dL (2.5-4.6) 12/19/21 04:55 Magnesium 2.0 mg/dL (1.7-2.8) 12/19/21 04:55 Iron 18 ug/dL (28-170) L 12/19/21 05:10 TIBC 378 ug/dL (250-450) 12/19/21 05:10 % Saturation 5 % (20-50) L 12/19/21 05:10 Transferrin 270 mg/dL (192-382) 12/19/21 05:10 Ferritin 7.8 ng/mL (11.0-306.8) L 12/19/21 05:10 Total Bilirubin 1.2 mg/dL (0.2-1.0) H 12/19/21 04:55 AST 26 IU/L (10-42) 12/19/21 04:55 ALT 17 IU/L (10-60) 12/19/21 04:55 Alkaline Phosphatase 36 IU/L (42-121) L 12/19/21 04:55 Total Creatine Kinase 77 IU/L (22-269) 12/19/21 02:15 Total Protein 7.6 g/dL (6.7-8.2) 12/19/21 04:55 Albumin 4.5 g/dL (3.2-5.5) 12/19/21 04:55 Globulin 3.1 g/dL (2.1-4.2) 12/19/21 04:55 Albumin/Globulin Ratio 1.5 (1.0-2.2) 12/19/21 04:55 Lipase 29 U/L (22-51) 12/18/21 15:14 TSH 1.06 uIU/mL (0.34-5.60) 12/18/21 15:14 Urine Color YELLOW 12/18/21 15:12 Urine Clarity HAZY (CLEAR) 12/18/21 15:12 Urine pH 6.5 PH (5.0-7.5) 12/18/21 15:12 Ur Specific [place] 1.020 (1.002-1.030) 12/18/21 15:12 Urine Protein NEGATIVE mg/dL (NEGATIVE) 12/18/21 15:12 Urine Glucose (UA) NEGATIVE mg/dL (NEGATIVE) 12/18/21 15:12 Urine Ketones NEGATIVE mg/dL (NEGATIVE) 12/18/21 15:12 Urine Occult Blood NEGATIVE (NEGATIVE) 12/18/21 15:12 Urine Nitrite POSITIVE (NEGATIVE) H 12/18/21 15:12 Urine Bilirubin NEGATIVE (NEGATIVE) 12/18/21 15:12 Urine Urobilinogen 0.2 (NORMAL) E.U./dL (NORMAL) 12/18/21 15:12 Ur Leukocyte Esterase NEGATIVE (NEGATIVE) 12/18/21 15:12 Urine RBC 0-5 /HPF (0-5) 12/18/21 15:12 Urine WBC 6-10 /HPF (0-5) H 12/18/21 15:12 Ur Squamous Epith Cells NONE SEEN (<= Few) 12/18/21 15:12 Urine Bacteria Many /HPF (None Seen) H 12/18/21 15:12 Ur Microscopic Review INDICATED 12/18/21 15:12 Urine Culture Comments INDICATED 12/18/21 15:12 Urine HCG, Qual NEGATIVE 12/18/21 15:12 Nasal Adenovirus (PCR) NOT DETECTED 12/18/21 15:12 Nasal B. parapertussis DNA (PCR) NOT DETECTED 12/18/21 15:12 Nasal Coronavir 229E PCR NOT DETECTED 12/18/21 15:12 Nasal Coronavir HKU1 PCR NOT DETECTED 12/18/21 15:12 Nasal Coronavir NL63 PCR NOT DETECTED 12/18/21 15:12 Nasal Coronavir OC43 PCR NOT DETECTED 12/18/21 15:12 Nasal Enterovir/Rhinovir PCR NOT DETECTED 12/18/21 15:12 Nasal Influenza B PCR NOT DETECTED 12/18/21 15:12 Nasal Influenza A PCR NOT DETECTED 12/18/21 15:12 Nasal Parainfluen 1 PCR NOT DETECTED 12/18/21 15:12 Nasal Parainfluen 2 PCR NOT DETECTED 12/18/21 15:12 Nasal Parainfluen 3 PCR NOT DETECTED 12/18/21 15:12 Nasal Parainfluen 4 PCR NOT DETECTED 12/18/21 15:12 Nasal RSV (PCR) NOT DETECTED 12/18/21 15:12 Nasal Screen MRSA (PCR) NEGATIVE (NEGATIVE) 12/18/21 18:00 Nasal B.pertussis DNA PCR NOT DETECTED 12/18/21 15:12 Nasal C.pneumoniae (PCR) NOT DETECTED 12/18/21 15:12 Willem Human Metapneumo PCR NOT DETECTED 12/18/21 15:12 Nasal M.pneumoniae (PCR) NOT DETECTED 12/18/21 15:12 Nasal SARS-CoV-2 (PCR) NOT DETECTED 12/18/21 15:12 Salicylates < 6.0 mg/dL 12/18/21 15:14 Urine Opiates Screen NEGATIVE (NEGATIVE) 12/18/21 15:12 Ur Oxycodone Screen NEGATIVE (NEGATIVE) 12/18/21 15:12 Urine Methadone Screen NEGATIVE (NEGATIVE) 12/18/21 15:12 Ur Propoxyphene Screen NEGATIVE (NEGATIVE) 12/18/21 15:12 Acetaminophen < 10 ug/mL (10-30) L 12/18/21 15:14 Ur Barbiturates Screen NEGATIVE (NEGATIVE) 12/18/21 15:12 Ur Tricyclics Screen NEGATIVE (NEGATIVE) 12/18/21 15:12 Ur Phencyclidine Scrn NEGATIVE (NEGATIVE) 12/18/21 15:12 Ur Amphetamine Screen NEGATIVE (NEGATIVE) 12/18/21 15:12 U Methamphetamines Scrn NEGATIVE (NEGATIVE) 12/18/21 15:12 U Benzodiazepines Scrn NEGATIVE (NEGATIVE) 12/18/21 15:12 Urine Cocaine Screen NEGATIVE (NEGATIVE) 12/18/21 15:12 U Cannabinoids Screen NEGATIVE (NEGATIVE) 12/18/21 15:12 Ethyl Alcohol < 5.0 mg/dL 12/18/21 15:14
[2021-12-19] MEDS: FERROUS GLUCONATE 324 MG TABLET PO SCH (18:26)
[2021-12-19] MEDS: cefTRIAXone 1 GM in SODIUM CHLORIDE 0.9% MINIBAG 100 ML IV SCH (19:49)
[2021-12-20] MEDS: SODIUM CHLORIDE FLUSH 0.9% 10 ML SYRINGE IVP SCH ×3 (02:33→19:47)
[2021-12-20 05:41] LABS: % IRON SATURATION 4 % (20-50); IRON 13 ug/dL (28-170); TOTAL IRON BINDING CAPACITY 354 ug/dL (250-450); TRANSFERRIN 253 mg/dL (192-382)
[2021-12-20 08:22] LABS: BASOPHILS # (AUTO) 0.1 10^3/uL (0.0-0.1); BASOPHILS % (AUTO) 0.7 %; CREATININE 0.9 mg/dL (0.4-1.0); EOSINOPHILS # (AUTO) 0.2 10^3/uL (0.0-0.7); EOSINOPHILS % (AUTO) 3.2 %; HCT - HEMATOCRIT 34.6 % (37.0-47.0); HGB - HEMOGLOBIN 11.4 g/dL (12.0-16.0); LYMPHOCYTES # (AUTO) 2.1 10^3/uL (1.5-3.5); LYMPHOCYTES % (AUTO) 28.6 %; MEAN CORPUSCULAR HEMOGLOBIN 23.6 pg (27.0-31.0); MEAN CORPUSCULAR HGB CONC 32.9 g/dL (32.0-36.0); MEAN CORPUSCULAR VOLUME 71.6 fL (81.0-99.0); MEAN PLATELET VOLUME 11.9 fL (7.9-10.8); MONOCYTES # (AUTO) 0.6 10^3/uL (0.0-1.0); MONOCYTES % (AUTO) 7.6 %; NEUTROPHILS # (AUTO) 4.3 10^3/uL (1.5-6.6); NEUTROPHILS % (AUTO) 59.8 %; PLT - PLATELET COUNT 290 10^3/uL (130-450); POTASSIUM 3.8 mmol/L (3.5-5.0); RED BLOOD COUNT 4.83 10^6/uL (4.20-5.40); RED CELL DISTRIBUTION WIDTH 17.3 % (12.0-15.0); WHITE BLOOD COUNT 7.2 x10^3/uL (4.8-10.8)
[2021-12-20] MEDS ORDERED: levoFLOXacin 250 MG TABLET PO SCH (11:00)
[2021-12-20] MEDS: FERROUS GLUCONATE 324 MG TABLET PO SCH (13:12)
[2021-12-20 16:57] LABS: B. PARAPERTUSSIS- RESP PCR PAN NOT DETECTED; B. PERTUSSIS- RESP PCR PANEL NOT DETECTED; C. PNEUMONIAE- RESP PCR PANEL NOT DETECTED; CORONAVIRUS 229E-RESP PCR NOT DETECTED; CORONAVIRUS HKU1-RESP PCR NOT DETECTED; CORONAVIRUS NL63-RESP PCR NOT DETECTED; CORONAVIRUS OC43-RESP PCR NOT DETECTED; HUMAN METAPNEUMOVIRUS NOT DETECTED; INFLUENZA A- RESP PCR PANEL NOT DETECTED; INFLUENZA B - RESP PCR PANEL NOT DETECTED; M. PNEUMONIAE- RESP PCR PANEL NOT DETECTED; PARAINFLUENZA VIRUS 1 NOT DETECTED; PARAINFLUENZA VIRUS 2 NOT DETECTED; PARAINFLUENZA VIRUS 3 NOT DETECTED; PARAINFLUENZA VIRUS 4 NOT DETECTED; RHINOVIRUS/ENTEROVIRUS NOT DETECTED; RSV- RESP PCR PANEL NOT DETECTED; SARS-CoV-2 -RESP PCR PANEL NOT DETECTED
--- NOTE | 2021-12-20 17:35 | PROVIDER PROGRESS NOTE ---
Subjective - Prog Note Date Prog Note Date: 12/20/21 Prog Note Time: 17:33 - Subjective Subjective: She is medically stable. Patient is more alert. Tachycardia, pupillary dilation has resolved. She is taking p.o. We attempted to get her to [facility] again. [facility] does not have any beds. I have been in contact with her [place] MD, Dr. Rose at [phone]. She has a flat affect. Gets tearful and regretful about what happened. But still very flat. She was started on IUD 2 weeks ago. Hormone eluding. RN wonders if that is what set off her suicide attempt. Patient has a long history of chronic depression and recently became worse. Current Medications - Current Medications Current Medications: Active Medications Ferrous Gluconate (Ferrous Gluconate 324 Mg Tablet) 324 mg PO DAILYWM [facility] Last Admin: 12/20/21 13:12 Dose: 324 mg Levofloxacin (Levofloxacin 250 Mg Tablet) 750 mg PO DAILY [facility] Last Admin: 12/20/21 13:12 Dose: 750 mg Lorazepam (Lorazepam 1 Mg Tablet) 1 mg PO Q6H PRN PRN Reason: Anxiety Last Admin: 12/19/21 02:16 Dose: 1 mg Ondansetron HCl (Ondansetron 4 Mg/2 Ml Vial) 4 mg IVP Q6HR PRN PRN Reason: Nausea / Vomiting Sodium Chloride (Sodium Chloride Flush 0.9% 10 Ml Syringe) 10 ml IVP 0100,0900,1700 [facility] Last Admin: 12/20/21 02:33 Dose: Not Given Sodium Chloride (Sodium Chloride Flush 0.9% 10 Ml Syringe) 10 ml IVP PRN PRN PRN Reason: NEEDED PER PROVIDER ORDERS Last Admin: 12/19/21 19:49 Dose: 10 ml Objective - Vital Signs/Intake & Output Reviewed Vital Signs: Yes Vital Signs: Vital Signs x48h Temp Pulse Resp BP Pulse Ox 12/20/21 17:00 36.4 C L 80 18 117/86 H 99 12/20/21 14:37 92 18 128/85 H 99 12/20/21 12:04 20 127/83 H 97 Intake & Output: Intake & Output 12/17/21 12/18/21 12/19/21 12/20/21 23:59 23:59 23:59 23:59 Intake Total 3400 3426.91 840 Output Total 1700 3940 350 Balance 1700 -513.09 490 - Objective General Appearance: positive: No acute distress, Alert, Other (5 foot 4 inch black female who is 46.5 kg. Slender, muted/flat affect) Eyes Bilateral: positive: PERRL, EOMI ENT: positive: No signs of dehydration Neck: positive: No JVD. negative: Stiff neck Respiratory: positive: No respiratory distress. negative: Wheezes, Rales, Rhonchi Cardiovascular: positive: Regular rate & rhythm. negative: Gallop/S4, Friction rub Abdomen: positive: Non-tender, No organomegaly, Nml bowel sounds, No distention Skin: positive: Warm, Dry Extremities: positive: Full ROM, No pedal edema Neurologic/Psychiatric: positive: Oriented x3, CN's nml (2-12), Motor nml, Depressed mood/affect - Lab Results Fish Bones: 12/20/21 04:50 12/20/21 04:50 Other Labs: Lab Results x24hrs 12/20/21 12/20/21 12/20/21 Range/Units 15:48 05:05 04:50 WBC 7.2 (4.8-10.8) x10^3/uL RBC 4.83 (4.20-5.40) 10^6/uL Hgb 11.4 L (12.0-16.0) g/dL Hct 34.6 L (37.0-47.0) % MCV 71.6 L (81.0-99.0) fL MCH 23.6 L (27.0-31.0) pg MCHC 32.9 (32.0-36.0) g/dL RDW 17.3 H (12.0-15.0) % Plt Count 290 (130-450) 10^3/uL MPV 11.9 H (7.9-10.8) fL Neut # (Auto) 4.3 (1.5-6.6) 10^3/uL Lymph # (Auto) 2.1 (1.5-3.5) 10^3/uL [place] # (Auto) 0.6 (0.0-1.0) 10^3/uL Eos # (Auto) 0.2 (0.0-0.7) 10^3/uL Baso # (Auto) 0.1 (0.0-0.1) 10^3/uL Absolute Nucleated RBC 0.00 x10^3/uL Nucleated RBC % 0.0 /100WBC Sodium (135-145) mmol/L Potassium (3.5-5.0) mmol/L Chloride (101-111) mmol/L Carbon Dioxide (21-32) mmol/L Anion Gap (6-13) BUN (6-20) mg/dL Creatinine (0.4-1.0) mg/dL Estimated GFR (MDRD) (>89) Glucose (70-100) mg/dL Calcium (8.5-10.3) mg/dL Iron 13 L (28-170) ug/dL TIBC 354 (250-450) ug/dL % Saturation 4 L (20-50) % Transferrin 253 (192-382) mg/dL Nasal Adenovirus (PCR) NOT DETECTED Nasal B. parapertussis DNA (PCR) NOT DETECTED Nasal Coronavir 229E PCR NOT DETECTED Nasal Coronavir HKU1 PCR NOT DETECTED Nasal Coronavir NL63 PCR NOT DETECTED Nasal Coronavir OC43 PCR NOT DETECTED Nasal Enterovir/Rhinovir PCR NOT DETECTED Nasal Influenza B PCR NOT DETECTED Nasal Influenza A PCR NOT DETECTED Nasal Parainfluen 1 PCR NOT DETECTED Nasal Parainfluen 2 PCR NOT DETECTED Nasal Parainfluen 3 PCR NOT DETECTED Nasal Parainfluen 4 PCR NOT DETECTED Nasal RSV (PCR) NOT DETECTED Nasal B.pertussis DNA PCR NOT DETECTED Nasal C.pneumoniae (PCR) NOT DETECTED Willem Human Metapneumo PCR NOT DETECTED Nasal M.pneumoniae (PCR) NOT DETECTED Nasal SARS-CoV-2 (PCR) NOT DETECTED 12/20/21 Range/Units 04:50 WBC (4.8-10.8) x10^3/uL RBC (4.20-5.40) 10^6/uL Hgb (12.0-16.0) g/dL Hct (37.0-47.0) % MCV (81.0-99.0) fL MCH (27.0-31.0) pg MCHC (32.0-36.0) g/dL RDW (12.0-15.0) % Plt Count (130-450) 10^3/uL MPV (7.9-10.8) fL Neut # (Auto) (1.5-6.6) 10^3/uL Lymph # (Auto) (1.5-3.5) 10^3/uL [place] # (Auto) (0.0-1.0) 10^3/uL Eos # (Auto) (0.0-0.7) 10^3/uL Baso # (Auto) (0.0-0.1) 10^3/uL Absolute Nucleated RBC x10^3/uL Nucleated RBC % /100WBC Sodium 136 (135-145) mmol/L Potassium 3.8 (3.5-5.0) mmol/L Chloride 104 (101-111) mmol/L Carbon Dioxide 22 (21-32) mmol/L Anion Gap 10.0 (6-13) BUN 13 (6-20) mg/dL Creatinine 0.9 (0.4-1.0) mg/dL Estimated GFR (MDRD) 96 (>89) Glucose 90 (70-100) mg/dL Calcium 9.0 (8.5-10.3) mg/dL Iron (28-170) ug/dL TIBC (250-450) ug/dL % Saturation (20-50) % Transferrin (192-382) mg/dL Nasal Adenovirus (PCR) Nasal B. parapertussis DNA (PCR) Nasal Coronavir 229E PCR Nasal Coronavir HKU1 PCR Nasal Coronavir NL63 PCR Nasal Coronavir OC43 PCR Nasal Enterovir/Rhinovir PCR Nasal Influenza B PCR Nasal Influenza A PCR Nasal Parainfluen 1 PCR Nasal Parainfluen 2 PCR Nasal Parainfluen 3 PCR Nasal Parainfluen 4 PCR Nasal RSV (PCR) Nasal B.pertussis DNA PCR Nasal C.pneumoniae (PCR) Willem Human Metapneumo PCR Nasal M.pneumoniae (PCR) Nasal SARS-CoV-2 (PCR) Assessment/Plan - Problem List (1) Suicide attempt Impression: She was admitted to manage the medical complications of Benadryl OD and NSAID OD. She was transferred out of ICU to [facility] status 12/19 afternoon. Social work eval feels we can stop the 1:1 monitoring and suicide precautions. In the state of [place], Social work determines voluntary or involutary and at this time patient expresses regret now that she remembers what she did. Updates given to Dr Mk Restrepo MD by phone ([phone]) Medically cleared for transfer to [facility] today but not beds available so now we are looking at other places. Dr. Terrazas states that even if the patient were discharged to home with input from Social Work, their command would have her driven to [facility] involuntarily. (2) Ibuprofen overdose Conclusion/Plan: Poison control was contacted by ED staff and NSAID overdose may cause acidosis, bleeding, and they recommend observing for nausea vomiting, abdominal pain, acidosis and renal dysfunction. Her serum electrolytes showed a low bicarb of 12, therefore was on a bicarbonate drip overnight and stopped 12/19. electrolytes are stable. She received one dose prophylactic IV Protonix on 12/18 to potentially prevent NSAID-caused GI bleeding. I will order po for today and tomorrow. Watch for ANDRAE from NSAIDs. Labs ordered and reviewed for today. Qualifiers: Encounter type: sequela Injury intent: intentional self-harm Qualified Code(s): T39.312S - Poisoning by propionic acid derivatives, intentional self- harm, sequela (3) Diphenhydramine overdose Conclusion/Plan: Poison control was called and a Benadryl overdose can cause potential QRS prolongation, anticholinergic effects, arrhythmias, seizures and drowsiness. If the QRS widens above 110, recommended bicarb bolus 1 to 2 mcg/kg over 2-5 mins. She may also get agitation and hallucinations. Would use benzodiazepines as needed, as per Poison control. She was tachycardic and elevated temperature at admission, which are consistent with anticholinergic toxicity. She already had altered mental status and needed monitoring for respiratory depression, was admitted to the ICU, for seizure precautions and in case she needs intubation. [place] Control called us and requested EKG repeat, to monitor QRS duration. QRS did not become prolonged and no arrhythmias on telemetry. Continuous pulse oximetry was started to monitor for desturations and resp depr ession for intubation. Now she is Med surg status. I will stop tele, 1:1. Qualifiers: Encounter type: initial encounter Injury intent: intentional self-harm Qualified Code(s): T45.0X2A - Poisoning by antiallergic and antiemetic drugs, intentional self-harm, initial encounter (4) Tachycardia resolved. Conclusion/Plan: She was very tachycardic at rest with a heart rate of 160, likely due to anticholinergic toxicity (from the Benadryl overdose). She got a saline bolus a nd antibx were started for a poss UTI. She was still slightly tachycardic at 100-108 and we continued with telemetry monitoring but moved out of ICU status. Today no tachycardia. Stop tele. (5) UTI (urinary tract infection) Conclusion/Plan: The patient has a fever of 38 degrees C. Her white blood count was elevated at 11.5 and today increased to 14. She was unreliable to describe if she has dysuria, therefore she was started on empiric IV antibiotics using Ceftriaxone. Today she was concerned about a retained tampon. A KUB was done and showed no tampon. Urine grew out staph epidermidis. Blood cultures were negative. White cell count is normal today. Last temperature was 38 degrees on December 18. She has been afebrile since that time.She changed to Levaquin today. Would only continue that for a total of 5 days of antibiotics. Between the ceftriaxone and Levaquin, she would need antibiotics till December 23. (6) Depression Conclusion/Plan: The details of how she was managed as an outpatient are unknown. Social Work consult will be requested for help with learning the circumstances of the overdose, and for a mental health eval. when she is medically stabilized, probably tomorrow. The patient's commanding officer thinks she would be transferred to [facility] for further management. (7) Microcytic anemia Conclusion/Plan: She carries a history of iron deficiency anemia, but not sickle cell disease, although this should be considered given she is -[place]. We started iron replacement, given the low Iron panel results. She was apparently on no meds per reconciled list by pharmacy. We will follow her CBC daily, and transfuse if hemoglobin goes under 7 (8) Metabolic acidosis Conclusion/Plan: Resolved. Treated w IV bicarb drip. (9) Hypokalemia Conclusion/Plan: Resolved Despite being acidotic, she does not have hyperkalemia. This suggests very low serum potassium stores. We replaced with K riders. Follow electrolytes closely.
[2021-12-20] MEDS: PANTOPRAZOLE 40 MG TABLET PO SCH (19:40)
[2021-12-21] MEDS: SODIUM CHLORIDE FLUSH 0.9% 10 ML SYRINGE IVP SCH ×2 (04:19→11:37)
[2021-12-21] MEDS: PANTOPRAZOLE 40 MG TABLET PO SCH (08:20)
[2021-12-21] MEDS: FERROUS GLUCONATE 324 MG TABLET PO SCH (08:20)
[2021-12-21] MEDS ORDERED: polyethylene glycoL 3350 17 GM PACKET PO SCH (09:00)
--- NOTE | 2021-12-21 11:14 | PHARMACY PROGRESS NOTE ---
- Best Possible Medication History Admit Date and Time: 12/18/21 1606 Processed by: Pharmacy Medication History completed: Yes Patient Interview: Completed As the person ultimately responsible for medication therapy, providers are able to order a medication from an existing home medication list in [facility] via the "Reconcile Routine" prior to Confirmation of that medication by support clerk. Such practice is discouraged except when the physician, in their clinical bj gment, deems that a medical need exists for a medication without regard to previous use.
[2021-12-21] MEDS ORDERED: levoFLOXacin 250 MG TABLET PO SCH (12:00)
--- NOTE | 2021-12-21 13:29 | Discharge Plan ---
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 Has a history of low-grade depression and had a recent exacerbation for which she took an [id number] dose of a bottle of Motrin and a bottle of Benadryl and intended suicidal overdose. She was acidotic, with anticholinergic effects on physical exam. She did well with IV fluids, bicarb drip, it did not need to be intubated. She is medically stable and now to be transferred to facility for specialty care. Plan of Treatment: Specialty care in an inpatient unit. With appropriate medications and counseling to be provided Care Goals: establish stable mental health with control of symptoms Assessment: patient is not happy about transfer and prefers to go home but is cooperative and will follow thru. No Smoking: If you smoke, Please STOP! Call for help.
--- NOTE | 2021-12-21 13:38 | DISCHARGE SUMMARY ---
Discharge Summary Admit Date: 12/18/21 Discharge Date: 12/21/21 Discharging Provider: Kerline Zamora MD Primary Care Provider: [facility] Code Status: Attempt Resuscitation Condition at Discharge: Stable Discharge Disposition: 65 Psych Hosp/Unit DC/Xfer - DIAGNOSES Discharge Diagnoses with Status of Each Condition: 1. Intentional drug overdose with Motrin and Benadryl 2. Suicidal ideation 3. Sinus tachycardia 4. UTI 5. Unspecified depressive disorder 6. Chronic iron deficiency anemia 7. Seizure due to drug - HPI History of Present Illness: This is a 21-year-old black female, who is active duty with the [employer] who presented to the emergency department 2 weeks ago for depression and was to have outpatient psych management and was sent home from ED. She apparently did start seeing a counselor, but that "did not help". Today EMS was called after she took an overdose of ibuprofen and diphenhydramine. She took approx. 20-30 tablets of 200 mg ibuprofen tabs and 25 mg diphenhydramine tabs. She reportedly had an episode of SVT with EMS and had a seizure about 3 minutes prior to arrival. EMS gave her 5 mg of Versed IV. EMS states that they do not know the circumstances surrounding the overdose, but she did state that she was trying to harm herself. She says that "a lot of little things" set her off to do this, she has never overdosed previously. She is being admitted to the ICU because of the seizure and acidosis. She appears very scared, her eyes are wide open, she is startled easily, her hands are tremulous. She does not answer any details about the ingestion. - Past Medical History Cardiovascular: reports: None Respiratory: reports: None Neuro: reports: None Endocrine/Autoimmune: reports: None GI: reports: None SECURITY NURSE: reports: None : reports: None HEENT: reports: None Psych: reports: Depression Musculoskeletal: reports: None Derm: reports: None Other Past Medical History: anemia - CONSULTS | PROCEDURES Procedures: Patient complained of retained tampon and plain film was done showing intrauterine device. No definite radiolucent tampon seen. - HOSPITAL COURSE Hospital Course: she was placed in a 1:1 observation. No behavioral issues. Had cholinergic response to the benadryl, metabolic acidosis and required bicarb drip. Social work did evalutation and still with depressions and feelings of hopelessness. She was found to have a UTI and started on antibiotics. Iron deficiency anemia verified with low iron studies on labs. She was started on iron tablets. She has an IUD. She was stable after 48 hours. No bed was available at [facility] and after 3 more days we found a bed at [facility]. She was transferred in stable condition. - ALLERGIES Allergies/Adverse Reactions: Allergies Allergy/AdvReac Type Severity Reaction Status Date / Time No Known Drug Allergies Allergy Verified 12/18/21 15:44 - MEDICATIONS Home Medications: Ambulatory Orders Medication Instructions Recorded Confirmed Ferrous Gluconate [Fergon] 324 mg PO DAILYWM #0 tablet 12/21/21 levoFLOXacin [Levaquin] 750 mg PO QDLUNCH tablet 12/21/21 - PHYSICAL EXAM AT DISCHARGE General Appearance: positive: No acute distress, Alert, Other (thin, 5'4" black female who is 46.5 kg. Flat affect. ) Eyes Bilateral: positive: PERRL, EOMI ENT: positive: No signs of dehydration Neck: positive: No JVD. negative: Stiff neck Respiratory: positive: No respiratory distress. negative: Wheezes, Rales, Rhonchi Cardiovascular: positive: Regular rate & rhythm. negative: Gallop/S4, Friction rub Peripheral Pulses: positive: 1+ Abdomen: positive: Non-tender, No organomegaly, Nml bowel sounds, No distention Skin: positive: Warm, Dry Extremities: positive: Full ROM, No pedal edema Neurologic/Psychiatric: positive: Oriented x3, CN's nml (2-12), Motor nml, Sensation nml, Depressed mood/affect. negative: Mood/affect nml - LABS Result Diagrams: 12/20/21 04:50 12/20/21 04:50 - TIME SPENT Time Spent in Discharge (Minutes): 40
[2021-12-21 14:14] VITALS: BP 124/74
== END 2021-12-21 14:58 | DRG 918 ==
LOC: EDUNIT# → ED 14:57 → ICU 16:06
PROVIDERS: ADMIT Internal Medicine; ATTEND Specialist
DX: T39.312A Poisoning by propionic acid derivatives, intentional self-harm, initial encounter (principal); N39.0 Urinary tract infection, site not specified; E87.2 Acidosis; R45.851 Suicidal ideations; T45.0X2A Poisoning by antiallergic and antiemetic drugs, intentional self-harm, initial encounter; R00.0 Tachycardia, unspecified; Y92.9 Unspecified place or not applicable; F32.A Depression, unspecified; D50.9 Iron deficiency anemia, unspecified; R56.9 Unspecified convulsions; Z97.5 Presence of (intrauterine) contraceptive device; R41.82 Altered mental status, unspecified; E87.6 Hypokalemia; Z20.822 Contact with and (suspected) exposure to COVID-19
CPT/HCPCS: 0202U; 36415; 51702; 72170; 80048; 80053; 80306; 80307; 80320; 80329; 81001; 81025; 82550; 82728; 82803; 83540; 83605; 83690; 83735; 84100; 84132; 84443; 84466; 85025; 87040; 87077; 87086; 87150; 87181; 93005; 96361; 96374; 99285; A9270; J8499; 81003